=== PATIENT | male | born 1975 | race Two or more races ===

== ENCOUNTER 2022-12-06 03:35 | Emergency (ER) | payer OTHER ==
[~2022-12-06] VITALS: Ht 157.5 cm; Wt 70.3 kg
[~2022-12-06 03:35] MED LIST: INDOMETHACIN25 MG; PRILOSEC20 MG; PROTONIX40 MG PO; TRAMADOL HCL-AP1 TAB
[2022-12-06] MEDS ORDERED: CELEBREX200MG PO (08:01)
[2022-12-06] MEDS ORDERED: METAXALONE400 MG PO (08:01)
== END 2022-12-06 10:07 | disposition home or self-care (01) ==
LOC: ER 03:35
DX: M54.2 Cervicalgia (principal)

== ENCOUNTER 2023-03-06 12:22 | Emergency (ER) | payer OTHER ==
[~2023-03-06] VITALS: Ht 157.5 cm; Wt 67.1 kg
[~2023-03-06 12:22] MED LIST changes: +CELEBREX200MG PO; +METAXALONE400 MG PO
== END 2023-03-06 21:38 | disposition home or self-care (01) ==
LOC: ER 12:22
DX: K29.60 Other gastritis without bleeding (principal); R11.10 Vomiting, unspecified; R10.9 Unspecified abdominal pain

== ENCOUNTER 2023-04-20 17:26 | Emergency (ER) | payer OTHER ==
[~2023-04-20] VITALS: Ht 165.1 cm; Wt 68.0 kg
[2023-04-21] MEDS ORDERED: PROTONIX40 MG PO (07:01)
[2023-04-21] MEDS ORDERED: ONDANSETRON ODT4 MG PO (07:01)
[2023-04-21] MEDS ORDERED: PEPCID40 MG PO (07:01)
== END 2023-04-20 23:15 | disposition home or self-care (01) ==
LOC: ER 17:26
DX: K29.70 Gastritis, unspecified, without bleeding (principal); K21.9 Gastro-esophageal reflux disease without esophagitis

== ENCOUNTER 2023-06-07 10:19 | Emergency (ER) | payer OTHER ==
[~2023-06-07] VITALS: Ht 157.5 cm; Wt 68.0 kg
[~2023-06-07 10:19] MED LIST changes: +ONDANSETRON ODT4 MG PO; +PEPCID40 MG PO
[2023-06-07] MEDS ORDERED: CARAFATE1 GM PO (19:10)
[2023-06-07] MEDS ORDERED: PEPCID AC20 MG PO (19:10)
== END 2023-06-07 17:49 | disposition home or self-care (01) ==
LOC: ER 10:19
DX: K29.70 Gastritis, unspecified, without bleeding (principal)

== ENCOUNTER 2023-06-28 21:01 | Emergency (ER) | payer OTHER ==
[~2023-06-28] VITALS: Ht 157.5 cm; Wt 77.1 kg
[~2023-06-28 21:01] MED LIST changes: +CARAFATE1 GM PO; +PEPCID AC20 MG PO
== END 2023-06-29 04:31 | disposition home or self-care (01) ==
LOC: ER 21:01
DX: K29.70 Gastritis, unspecified, without bleeding (principal); R10.84 Generalized abdominal pain; R11.10 Vomiting, unspecified

== ENCOUNTER 2023-07-22 08:46 | Emergency (ER) | payer OTHER ==
[~2023-07-22] VITALS: Ht 172.7 cm; Wt 108.9 kg
== END 2023-07-22 15:45 | disposition home or self-care (01) ==
LOC: ER 08:46
PROVIDERS: Emergency Medicine
DX: K29.70 Gastritis, unspecified, without bleeding (principal); R11.10 Vomiting, unspecified

== ENCOUNTER 2024-12-14 08:25 | Outpatient (CLI) | payer OTHER ==
[~2024-12-14 08:25] MED LIST changes: +CARAFATE1 GM/10 ML PO; +PROTONIX20 MG PO; +ZOFRAN8 MG PO
== END 2024-12-14 08:35 | disposition home or self-care (01) ==
LOC: TOM 08:25
PROVIDERS: ATTEND General Practice
DX: R05.3 Chronic cough (principal)